=== PATIENT | male | born 1960 | race Caucasian/White ===

== ENCOUNTER → 2018-11-09 | Outpatient (CLI) | payer OTHER | LOC: M.CT 07:59 | DX: Z13.6 Encounter for screening for cardiovascular disorders (principal); E78.00 Pure hypercholesterolemia, unspecified; I25.10 Atherosclerotic heart disease of native coronary artery without angina pectoris ==

== ENCOUNTER 2019-03-09 07:22 | Observation (INO) | payer OTHER ==
[~2019-03-09] VITALS: Ht 180.3 cm; Wt 127.0 kg
[2019-03-09] VITALS (15 sets, daily range): BP systolic 126–178; BP diastolic 50–90
[2019-03-09] MEDS ORDERED: NORVASC 2.5 MG2.5 M1 PO (07:46)
[2019-03-09] MEDS ORDERED: ASA81BEC PO (07:47)
[2019-03-09] MEDS ORDERED: LIPITOR20 MG PO (07:49)
[2019-03-09] MEDS ORDERED: METFORMIN HCL500 M3 PO (07:49)
[2019-03-09] MEDS ORDERED: UNICOMPLEX M TA1 TA1 PO (07:49)
[2019-03-09] MEDS ORDERED: BENICAR HCT 401 EACH PO (07:50)
[2019-03-09 08:05] LABS: HEMOGLOBIN 13.6 gm/dL (14.0-18.0); MCV 82.4 fL (80.0-100.0); MPV 7.1 fl. (7.2-11.1); RBC 4.85 mil/uL (4.50-6.00); RDW-CV 14.4 % (10.5-14.5); WBC 8.1 thou/uL (4.0-11.0)
[2019-03-09 08:14] LABS: APTT 27.3 Seconds (25.0-31.3); PROTIME 10.5 Seconds (9.20-11.50)
[2019-03-09 08:15] LABS: ANION GAP 10 mmol/L (7-16); BUN 14 mg/dL (7-18); CALCIUM 8.4 mg/dL (8.5-10.1); CHLORIDE 103 mmol/L (98-107); CO2 27 mmol/L (21-32); CREATININE 1.1 mg/dL (0.6-1.3); GLUCOSE 128 mg/dL (70-99); SODIUM 140 mmol/L (136-145)
[2019-03-09 08:19] LABS: ALBUMIN 3.9 g/dL (3.4-5.0); ALKALINE PHOSPHATASE 91 U/L (46-116); CHOLESTEROL 108 mg/dL (<200); HDL CHOLESTEROL 31 mg/dL (>40); LDL CHOLESTEROL 59 mg/dL (<100); SERUM ASSESSMENT Clear; SGOT 21 U/L (15-37); SGPT 51 U/L (30-65); TC:HDL 3.5 Ratio (Not establshd); TOTAL BILIRUBIN 0.4 mg/dL (<0.1-1.0); TOTAL PROTEIN 7.4 g/dL (6.4-8.2); TRIGLYCERIDE 91 mg/dL (<150); VLDL 18 mg/dL (<40)
--- NOTE | 2019-03-09 13:04 | EKG ---
[place] [address] ELECTROCARDIOGRAM REPORT Name: AUDREY CRAFT Room: [address] M.R.#: [id number] Admission: 03/09/19 Attend Phys: John Dee MD, Discharge: Date of : 56 Report #: [id number] THIS REPORT FOR: //name// [facility] Test Date: 2019-03-09 Test Time: 08:07:04 Pat Name: AUDREY CRAFT Department: Room: [facility] Gender: M Relocation Specialist: : 1960 Requested By: John Dee Order Number: [id number] Tani MD: John Dee Measurements Intervals [place] Rate: 75 P: 14 ND: 201 QRS: 6 QRSD: 101 T: 27 QT: 390 QTc: 436 Interpretive Statements Sinus rhythm Possible anteroseptal infarct, old No previous ECG available for comparison Electronically Signed On 03-09-2019 13:04:02 INDUSTRIAL ENGINEERING MANAGER by John Dee [email or web address] <ELECTRONICALLY SIGNED> By: John Dee MD, [facility] 03/09/19 1304 D: 01/806 6 John Dee MD, FACC /EPI
--- NOTE | 2019-03-09 13:07 | EKG ---
[place] [address] ELECTROCARDIOGRAM REPORT Name: AUDREY CRAFT Room: [address] M.R.#: [id number] Admission: 03/09/19 Attend Phys: John Dee MD, Discharge: Date of : 56 Report #: [id number] THIS REPORT FOR: //name// [facility] Test Date: 2019-03-09 Test Time: 12:10:31 Pat Name: AUDREY CRAFT Department: Room: [facility] Gender: M Engineer Station Mainline: : 1960 Requested By: John Dee Order Number: [id number] Tani MD: John Dee Measurements Intervals [place] Rate: 71 P: 11 FL: 215 QRS: 9 QRSD: 100 T: 23 QT: 417 QTc: 454 Interpretive Statements Sinus rhythm Prolonged [place] interval Possible anteroseptal infarct, old No previous ECG available for comparison Electronically Signed On 03-09-2019 13:06:33 ASSISTANT COMMUNITY MANAGER by John Dee [email or web address] <ELECTRONICALLY SIGNED> By: John Dee MD, [facility] 03/09/19 1306 1210 1210 John Dee MD, FACC /EPI
--- NOTE | 2019-03-09 13:56 | CARD ---
[address] [address] CARDIAC CATH REPORT Name: AUDREY CRAFT Room: [address] Joanne Davis#: [id number] Admission: 03/09/19 Attend Phys: John Dee MD, Discharge: Date of : 56 Report #: [id number] THIS REPORT FOR: //name// APPROVED REPORT Study performed: 03/09/2019 09:26:[address] John Dee Procedures Performed Left heart catheterization left ventriculography selective coronary arteriography and percutaneous coronary intervention to the distal right coronary artery Indication Positive stress test Risk Factors Obesity, Hypercholesterolemia, Hypertension Admission/Lab Medications/Medications given during procedure Angiomax bolus and infusion Procedure Narrative The patient was brought electively to the Cardiac Catheterization Laboratory and was prepped and draped in a sterile manner. The right femoral was infiltrated with 2% Lidocaine subcutaneous anesthesia. A 6 Icelandic sheath was inserted into the right femoral artery. Coronary angiography was performed using coronary diagnostic catheters. The right coronary system was accessed and visualized with a Diagnostic catheter. The left coronary system was accessed and visualized with a Diagnostic catheter. Left ventricular/Aortic Valve gradient assessed via catheter pullback. Left ventriculogram was performed in FIGUEROA projection. Pre-demployment femoral angiogram was performed . Closure device was deployed with a 6 Fr Angioseal. There was no hematoma. Diagnostic Cath Left Main 0% narrowing LAD 20% mid LAD narrowing with 20% first diagonal narrowing Circumflex 30% narrowing of the midportion of the nondominant circumflex Right Coronary Very large dominant vessel with 80% distal eccentric [address] [address] CARDIAC CATH REPORT Name: AUDREY CRAFT Room: [address] Joanne Davis#: [id number] Admission: 03/09/19 Attend Phys: John Dee MD, Discharge: Date of : 56 Report #: [id number] calcified stenosis Left Ventriculography The left ventricle is normal in size with normal contractility. The left ventricular ejection fraction is estimated to be 65%. Left ventricular wall motion abnormalities are not present. There is no mitral insufficiency. Hemodynamics The aortic pressure is 130/70 mmHg with a mean of 82 mmHg. The left ventricular end diastolic pressure is 10 mmHg. There was no gradient across the aortic valve upon pullback. PCI Technique Lesion Anticoagulation was achieved with Angiomax. Percutaneous coronary intervention was performed on the distal right coronary artery. The lesion stenosis prior to intervention was 80% with MICHELLE 3 flow. A 6 Icelandic 3 DRC Guide Catheter was used to engage the right ostium. A 014 BMW Interventional Guidewire was used to cross the lesion. BALLOON DILATION A Balloon catheter 2.5 x 12 mm trek was inserted and inflated up to 16atm for 15seconds. STENT DEPLOYMENT A drug-eluting stent 2.75 x 12 mm scar was inserted and inflated up to 16atm for 15seconds. POST STENT DEPLOYMENT BALLOON DILATION A Balloon catheter 3.0 x 8 mm NC trek was inserted and inflated up to 18atm for 10seconds. Final angiography reveals 10 % stenosis with MICHELLE 3 flow. Conclusion #1 significant coronary artery disease characterized by following: A 80% calcified eccentric distal right coronary stenosis, this being a very large dominant vessel B 20% mid LAD and first diagonal narrowing C 30% narrowing of the midportion of [place] [address] CARDIAC CATH REPORT Name: AUDREY CRAFT Room: [address] M.R.#: [id number] Admission: 03/09/19 Attend Phys: John Dee MD, Discharge: Date of : 56 Report #: [id number] #2 normal left ventricular systolic function, estimate ejection fraction 65% #3 normal left-sided hemodynamics study #4 successful percutaneous coronary intervention with deployment of a drug-eluting stent at site of 80% distal eccentric calcified right coronary stenosis with 10% residual narrowing and MICHELLE-3 flow to the distal vessel Recommendations Cardiac Risk Reduction Program Aggressive Medical Therapy Medications Administered Aspirin (any) Prasugrel Diagnostic Cath Approved by: John Dee MD Date/Time: 03/09/2019 13:55:09 <ELECTRONICALLY SIGNED> By: John Dee MD, [facility] 03/09/19 1355 1355 1355John Dee MD, FACC /INF
[2019-03-10] VITALS: BP 117/63
[2019-03-10 04:00] VITALS: BP 131/71
[2019-03-10 05:26] LABS: HEMATOCRIT 36.4 % (42.0-52.0); HEMOGLOBIN 12.3 gm/dL (14.0-18.0); MCH 27.8 pg (26.0-34.0); MCHC 33.8 g/dL (28.0-37.0); MCV 82.1 fL (80.0-100.0); MPV 7.4 fl. (7.2-11.1); RBC 4.44 mil/uL (4.50-6.00); RDW-CV 14.3 % (10.5-14.5); WBC 9.7 thou/uL (4.0-11.0)
[2019-03-10 05:48] LABS: ALBUMIN 3.4 g/dL (3.4-5.0); CALCIUM 7.9 mg/dL (8.5-10.1); POTASSIUM 3.9 mmol/L (3.5-5.1); TOTAL BILIRUBIN 0.4 mg/dL (<0.1-1.0); TOTAL PROTEIN 6.5 g/dL (6.4-8.2)
[2019-03-10 06:03] LABS: TROPONIN-I LEVEL 0.79 ng/mL (<0.06)
[2019-03-10 08:00] VITALS: BP 135/80
[2019-03-10 09:52] VITALS: BP 139/83
[2019-03-10] MEDS ORDERED: EFFIENT10 MG PO (11:13)
[2019-03-10] MEDS ORDERED: NITROSTAT0.4 M1 SUBLING (11:17)
[2019-03-10 11:51] VITALS: BP 139/83
--- NOTE | 2019-03-10 12:10 | NUR ---
ASSUMED CARE OF PATIENT THIS AM AT 0730. PATIENT IS ALERT AND ORIENTED X 4. HE DENIES CHEST PAIN AND SOA. TELE SHOWS NSR. DR PATE IN TO ROUND AND DISCHARGE ORDERS WRITTEN. PATIENT GIVEN DISCHARGE, POSTCATH AND FOLLOWUP INSTURCTIONS ALONG WITH PRESCRIPTIONS AND CARENOTES. SALINE LOCK AND TELE MONITOR DISCONTINUED. PATIENT DISCHARGED TO HOME WITH BELONGINGS.
--- NOTE | 2019-03-11 11:19 | D ---
[address] [address] DISCHARGE SUMMARY Name: AUDREY CRAFT Room: [address] Joanne M.RLeti#: [id number] Admission: 03/09/19 Attend Phys: John Dee MD, Discharge: 03/10/19 Date of : 56 Report #: [id number] THIS REPORT FOR: //name// CC: Kirk Dee DATE OF SERVICE: 03/10/2019 FINAL DISCHARGE DIAGNOSES: 1. Abnormal nuclear stress test. 2. Markedly increased coronary calcium score. 3. Dyspnea on exertion. 4. Exogenous obesity. PROCEDURES: 03/09/2019 -- left heart catheterization, left ventriculography, selective coronary arteriography and percutaneous coronary intervention with deployment of drug-eluting stent in the distal right coronary artery. HOSPITAL COURSE: The patient is a very pleasant and active 58-year-old male with noted some dyspnea on exertion, but no chest discomfort. He had a markedly increased coronary calcium score. Nuclear stress testing was abnormal with inducible ischemia. Given this data, Dr. Trammell recommend a cardiac catheterization, which was undertaken on 03/09/2019. That study revealed significant distal right coronary stenosis with 80% calcified eccentric distal lesion prior to a very prominent posterolateral branch. There were mild 20-30% narrowings of the LAD, diagonal and circumflex. I deployed one 2.75 x 12 mm Charan drug-eluting stent in the distal right coronary artery, post-dilated to 3.0 mm proximally with 10% residual narrowing and MICHELLE-3 flow of the distal vessel. Troponin isabella minimally to 0.79. Additional lab revealed hemoglobin of 12.3, white blood cell count of 9700 with 192,000 platelets. Sodium 143, potassium 3.9, BUN 12, creatinine 1.0, and glucose 110. The patient ambulated in the hallways without difficulty and there was good hemostasis at the right femoral site of catheterization. DISCHARGE MEDICATIONS: He was discharged to home on the following medications: Amlodipine 2.5 mg 2 tablets or 5 mg daily, enteric-coated aspirin one tablet daily, atorvastatin 20 mg at bedtime, metformin 500 mg daily to be resumed on 03/11/2019, multivitamin with mineral one tablet daily, Benicar HCT 40/12.5 one tablet daily, prasugrel/Effient 10 mg daily with a 60 mg dose given baljinder-procedurally. The patient is scheduled to return to see Dr. Trammell on 04/04/2019 at [address] [place] [address] DISCHARGE SUMMARY Name: AUDREY CRAFT Room: [address] Joanne Davis#: [id number] Admission: 03/09/19 Attend Phys: John Dee MD, Discharge: 03/10/19 Date of : 56 Report #: [id number] Therefore, the patient is discharged to home in stable condition on the aforementioned medications with followup as described above. <ELECTRONICALLY SIGNED> By: John Dee MD, FACC 03/11/19 1119 0959 [id number] Dee MD, FAC /nt
--- NOTE | 2019-03-12 10:37 | EKG ---
[place] [address] ELECTROCARDIOGRAM REPORT Name: AUDREY CRAFT Room: [address] M.R.#: [id number] Admission: 03/09/19 Attend Phys: John Dee MD, Discharge: 03/10/19 Date of : 56 Report #: [id number] THIS REPORT FOR: //name// [facility] Test Date: 2019-03-10 Test Time: 12:08:13 Pat Name: AUDREY CRAFT Department: Room: [facility] Gender: M Log Processor Operator: KF : 1960 Requested By: John Dee Order Number: [id number] Reading MD: Jonathan Gongora Measurements Intervals [place] Rate: 68 P: 11 [place]: 211 QRS: 10 QRSD: 101 T: 0 QT: 411 QTc: 438 Interpretive Statements Sinus rhythm Prolonged [place] interval Probable anteroseptal infarct, old Borderline T abnormalities, inferior leads Compared to ECG 03/09/2019 12:10:31 Myocardial infarct finding still present Electronically Signed On 03-12-2019 10:37:01 PASTA PRESS OPERATOR by Jonahtan Gongora [email or web address] <ELECTRONICALLY SIGNED> By: Jonathan Gongora MD, FACC 03/12/19 1037 1208 1208 Jonathan Gongora MD, [facility] /EPI
== END 2019-03-10 12:15 | disposition home or self-care (01) ==
LOC: M.CL 07:22 → M.TBA-CV 11:42 → M.2W 15:20
PROVIDERS: ADMIT Internal Medicine
DX: R94.39 Abnormal result of other cardiovascular function study (principal); R06.00 Dyspnea, unspecified; E66.09 Other obesity due to excess calories; Z68.44 Body mass index [BMI] 60.0-69.9, adult